=== PATIENT | male | born 1990 | race Caucasian/White ===

== ENCOUNTER 2016-07-19 19:38 | Emergency (ER) | payer MEDICAID, OTHER ==
[~2016-07-19] VITALS: Ht 170.2 cm; Wt 100.5 kg
[2016-07-19 20:37] VITALS: Ht 170.2 cm; Wt 100.5 kg
--- NOTE | 2016-07-19 21:18 | ERD ---
ER Documentation Chief Complaint Date/Time DATE: 07/19/16 TIME: 21:16 Chief Complaint Laceration right hand HPI Patient is a 25-year-old male who presents with laceration to the dorsal surface of his right hand that he accidentally sustained today with a piece of metal while trying to fix his car. Denies any numbness or tingling. States the pain is 2 out of 10 throbbing. Tetanus is up-to-date. No other injuries. Denies any loss of range of motion. Denies active bleeding. ROS All systems reviewed and are negative except as per history of present illness. Allergies Allergies: Coded Allergies: No Known Allergy (Unverified , 07/19/16) PMhx/Soc History of Surgery: Yes (hernia repair) Anesthesia Reaction: No Hx Neurological Disorder: No Hx Respiratory Disorders: No Hx Cardiac Disorders: No Hx Psychiatric Problems: No Hx Miscellaneous Medical Probl: Yes (Hodgkins lymphoma as a kid.) Hx Alcohol Use: No Hx Substance Use: No Hx Tobacco Use: No Smoking Status: Never smoker FmHx Family History: No diabetes Physical Exam Vitals Vital Signs Date Time Temp Pulse Resp B/P Pulse Ox O2 Delivery O2 Flow Rate FiO2 07/19/16 20:37 97.1 74 18 126/81 100 Physical Exam General: well developed, well nourished, alert, nontoxic, no distress Head: normocephalic, atraumatic Respiratory: Clear to auscaultation bilaterally, speaks in full sentences, no use of accesory muscles or labored breathing, no rales, ronchi, or wheezing Cardiovascular: RRR, No murmurs Skin: Superficial linear laceration approximately 1-1-1/2 cm at the dorsal surface of the right hand at the base of the second metacarpal, full range of motion in the hand, no bony abnormalities, capillary refill less than 2 seconds , sensation to light touch intact Procedures/MDM Patient presents with superficial laceration to the dorsal surface of his right hand. He is neurovascularly intact and I doubt tendinous injury based on physical examination. He has full range of motion in the hand is able to make a fist and oppose thumb to all digits. The wound is very superficial and can reveal repaired after it was irrigated with copious amounts of normal saline by Steri stripping to approximate the wound edges and then Dermabond. Wound was appropriately then dressed and bandaged patient was discharged with wound care instructions. Recommended this patient follow up with her primary care doctor within 48 hours or return to the emergency room for any worsening of symptoms. However this time I do believe there is suitable for outpatient management. I answered all their questions and they agreed with the plan and were discharged home. Departure Diagnosis: Primary Impression: Laceration Condition: Stable RAMON JONES PA-C Jul 19, 2016 21:18
== END 2016-07-19 21:45 | disposition home or self-care (01) ==
LOC: FTE 19:38
DX: S61.411A Laceration without foreign body of right hand, initial encounter (principal); W22.8XXA Striking against or struck by other objects, initial encounter; Y92.89 Other specified places as the place of occurrence of the external cause; Z85.71 Personal history of Hodgkin lymphoma

== ENCOUNTER 2016-08-29 16:35 | Emergency (ER) | payer MEDICAID ==
[~2016-08-29] VITALS: Ht 165.1 cm; Wt 100.0 kg
[2016-08-29 16:37] VITALS: Ht 165.1 cm; Wt 100.0 kg
[2016-08-29] MEDS ORDERED: NAPR-260 PO (20:01)
[2016-08-29] MEDS ORDERED: ACET500C5 PO (20:01)
--- NOTE | 2016-08-29 20:06 | ERD ---
ER Documentation Chief Complaint Date/Time DATE: 08/29/16 TIME: 20:03 Chief Complaint RIGHT LEG PAIN, SLIPPPED AND FELL 2 DAYS AGO HPI Is a 25-year-old male presents to the emergency department today who was at work and slipped and fell on water however he states he was "not around the clock. States he has some pain on the back of his right leg. States he has not taken any medication for pain. Denies any previous trauma, fevers or chills. States that the pain has improved since 2 days ago. Moving from flexion to extension ROS All systems reviewed and are negative except as per history of present illness. Medications Home Meds Active Scripts Acetaminophen* (Tylophen*) 500 Mg Capsule, 1 CAP PO Q6H Y for PAIN AND OR ELEVATED TEMP, #30 CAP Prov:JACINDA QUILES PA-C 08/29/16 Naproxen* (Naprosyn*) 500 Mg Tablet, 500 MG PO BID Y for PAIN AND/OR INFLAMMATION, #30 TAB Prov:JACINDA QUILES PA-C 08/29/16 Allergies Allergies: Coded Allergies: No Known Allergy (Unverified , 07/19/16) PMhx/Soc History of Surgery: Yes (hernia repair) Anesthesia Reaction: No Hx Neurological Disorder: No Hx Respiratory Disorders: No Hx Cardiac Disorders: No Hx Psychiatric Problems: No Hx Miscellaneous Medical Probl: Yes (Hodgkins lymphoma as a kid.) Hx Alcohol Use: No Hx Substance Use: No Hx Tobacco Use: No Smoking Status: Never smoker Physical Exam Vitals Vital Signs Date Time Temp Pulse Resp B/P Pulse Ox O2 Delivery O2 Flow Rate FiO2 08/29/16 16:37 97.9 90 18 123/62 99 Physical Exam Const: No acute distress Head: Atraumatic Eyes: Normal Conjunctiva ENT: Normal External Ears, Nose and Mouth. Neck: Full range of motion..~ No meningismus. Resp: Clear to auscultation bilaterally Cardio: Regular rate and rhythm, no murmurs Abd: Soft, non tender, non distended. Normal bowel sounds Skin: No petechiae or rashes MSk: Right knee no obvious deformity. No effusion. No ecchymosis. full active range of motion. Tenderness to palpation along medial lateral border of patella. Pain with knee flexion. Pulses 2+. Distal neurovascularly intact. Neur: Awake and alert Psych: Normal Mood and Affect Procedures/MDM This 22-year-old male who presents to the emergency department today complaining of some right knee and leg pain after sustaining a fall after slipping on water work yesterday. On physical exam patient's exam is essentially benign. He did have some tenderness along the anterior aspect of his knee. Patient was unsure how he fell but the mechanism he seems to describe is that he fell on the front of his knee and now has pain on the back of his knee. I did offer to obtain images for the patient however patient has declined x-rays at this time. Given that patient has pain in the posterior aspect of his knee he may have injured his PCL. I have explained this to the patient. I have explained to him that the x-rays will only look at the bony he may need further evaluation by orthopedic special tests. I do have low suspicion for acute fracture dislocation that given that patient is able to ambulate and his pain is improved significantly over the past 2 days. Low suspicion for septic joint or gout. There is no erythema or warmth and patient is afebrile. Patient did accept an Benigno wrap and knee immobilizer. He declined crutches. He is given a prescription for Naprosyn and Tylenol for home. At this time the patient is stable for discharge and outpatient management. Patient should follow up with their PCP in the next 1-2 days. They may return to the emergency department sooner for any persistent or worsening of symptoms. Patient understood and agreed with the plan. Departure Diagnosis: Primary Impression: Injury of right leg Encounter type: initial encounter Qualified Code: S89.91XA - Injury of right leg, initial encounter Condition: Fair Patient Instructions: Reducing Knee Pain and Swelling Referrals: [facility] YOU HAVE RECEIVED A MEDICAL SCREENING EXAM AND THE RESULTS INDICATE THAT YOU DO NOT HAVE A CONDITION THAT REQUIRES URGENT TREATMENT IN THE EMERGENCY DEPARTMENT. FURTHER EVALUATION AND TREATMENT OF YOUR CONDITION CAN WAIT UNTIL YOU ARE SEEN IN YOUR DOCTORS OFFICE WITHIN THE NEXT 1-2 DAYS. IT IS YOUR RESPONSIBILITY TO MAKE AN APPOINTMENT FOR FOLOW-UP CARE. IF YOU HAVE A PRIMARY DOCTOR --you should call your primary doctor and schedule an appointment IF YOU DO NOT HAVE A PRIMARY DOCTOR YOU CAN CALL OUR PHYSICIAN REFERRAL HOTLINE AT IF YOU CAN NOT AFFORD TO SEE A PHYSICIAN YOU CAN CHOSE FROM THE FOLLOWING [facility] [address] [facility] [address] [facility] [address] [facility] [address] [facility] [address] [facility] [address] [facility] Hours: Mon-Fri 9:00 AM - 5:00 PM Additional Instructions: Call your primary care doctor TOMORROW for an appointment during the next 1-2 days.See the doctor sooner or return here if your condition worsens before your appointment time. Take Naprosyn or Tylenol or Motrin for pain Use Benigno wrap for knee compression and use the immobilizer for support Apply ice to painful area JACINDA QUILES PA-C August 29, 2016 20:06
[2016-08-29 20:33] VITALS: BP 115/71; PULSE 72; RESP 18; TEMP 98.2
== END 2016-08-29 20:33 | disposition home or self-care (01) ==
LOC: FTE 16:35
DX: S89.91XA Unspecified injury of right lower leg, initial encounter (principal); W01.0XXA Fall on same level from slipping, tripping and stumbling without subsequent striking against object, initial encounter; Y92.9 Unspecified place or not applicable